=== PATIENT | male | born 1965 | race Caucasian/White ===

== ENCOUNTER 2021-11-26 13:20 | Outpatient (REF) | payer MEDICAID, SELFPAY ==
[2021-11-26 22:21] LABS: HCT 40.6 % (40.0-50.0); HGB 13.6 g/dL (13.5-17.5); MCH 29.4 pg (27.0-33.0); MCHC 33.5 % (32.0-36.0); MCV 88 fL (80-95); MPV 12.4 fL (8.0-11.0); Platelet Count 205 10^3/uL (130-400); RBC 4.63 10^6/uL (4.36-5.78); RDW 11.9 % (11.8-14.1); RDW-SD 38.3 fL; WBC 6.51 10^3/uL (4.4-10.8)
[2021-11-26 22:36] LABS: Hemoglobin A1C 5.4 % (<5.7)
[2021-11-26 22:43] LABS: ALT 26 U/L (16-63); AST 21 U/L (15-37); Albumin 4.3 g/dL (3.4-5.0); Alkaline Phosphatase 63 U/L (46-116); Anion Gap 10.6 mmol/L (3-11); BUN 17 mg/dL (7-18); Bilirubin, Total 1.3 mg/dL (0.2-1.0); CO2 25.4 mmol/L (21.0-32.0); CREATININE 1.1 mg/dL (0.70-1.30); Calculated LDL 130 mg/dL (<100); Chloride 104 mmol/L (98-107); Cholesterol 239 mg/dL (<200); Glucose 95 mg/dL (74-106); HDL Cholesterol 66 mg/dL (40-60); Potassium 4.3 mmol/L (3.5-5.1); Sodium 140 mmol/L (136-145); Total Protein 7.5 g/dL (6.4-8.2); Triglyceride 216 mg/dL (<150)
[2021-11-28 11:02] LABS: HIV-1/2 Ag & Ab Screen Negative (Negative)
[2021-11-28 11:13] LABS: Hepatitis C Ab w Rflx HCV PCR Negative (Negative)
== END 2021-11-26 13:21 | disposition home or self-care (01) ==
LOC: NCHCN 13:20
PROVIDERS: PCP Internal Medicine; Visit Provider Family Medicine
DX: Z11.4 Encounter for screening for human immunodeficiency virus [HIV] (principal); Z13.1 Encounter for screening for diabetes mellitus; F10.99 Alcohol use, unspecified with unspecified alcohol-induced disorder; R03.0 Elevated blood-pressure reading, without diagnosis of hypertension; Z11.59 Encounter for screening for other viral diseases; Z13.220 Encounter for screening for lipoid disorders
CPT/HCPCS: 80053; 80061; 85027; 86803; 87389; 83036

== ENCOUNTER 2022-12-08 15:18 | Outpatient (REF) | payer MEDICAID, SELFPAY ==
[2022-12-08 16:20] LABS: Bilirubin, Direct 0.2 mg/dL (0.0-0.2); Bilirubin, Total 1.2 mg/dL (0.2-1.0); CREATININE 1.1 mg/dL (0.70-1.30); Estimated GFR 79.28 (mL/min/1.73m2); Uric Acid 7.5 mg/dL (3.5-7.2)
== END 2022-12-08 15:19 | disposition home or self-care (01) ==
LOC: NCHCN 15:18
PROVIDERS: PCP Family Medicine; Visit Provider Family Medicine
DX: I10 Essential (primary) hypertension (principal); M10.9 Gout, unspecified; E80.6 Other disorders of bilirubin metabolism
CPT/HCPCS: 82247; 82248; 82565; 84550

== ENCOUNTER 2024-07-11 13:33 | Emergency (ER) | payer MEDICAID, SELFPAY ==
[2024-07-11] VITALS (17 sets, daily range): BP systolic 137–224; BP diastolic 86–127; PULSE 51–84; RESP 12–18; TEMP 36.3; O2SAT 97–100
--- NOTE | 2024-07-11 13:45 | RT.EKG_ITS ---
APPROVED REPORT Exam: Resting ECG Reason for Exam: dizziness Patient Location: E HR:59 bpm ECG Measurements Heart Rate 59 AXIS OH 172 P 53 QRSd 100 QRS -26 QT 421 T 17 QTc 418 Conclusion Sinus bradycardia...rate< 60
--- NOTE | 2024-07-11 14:00 | DI.CT_ITS ---
Exam(s) CT ABDOMEN PELVIS W EXAM: CT ABDOMEN PELVIS W CLINICAL HISTORY: llq pain. TECHNIQUE: Imaging Protocol: Axial computed tomography images with coronal and sagittal reformatted images were created and reviewed CONTRAST MATERIAL: Intravenous: Omnipaque-350 75cc Oral: None COMPARISON: No exams were available for comparison FINDINGS: VISUALIZED LUNG BASES: No nodules nor pleural effusions evident. ABDOMEN: There is no ascites. LIVER: There are no focal hepatic lesions evident. No dilated intrahepatic ducts. GALLBLADDER/BILIARY: No obvious gallbladder pathology. CBD is not dilated. PANCREAS: No evidence of pancreatic mass nor dilatation of the pancreatic duct. SPLEEN: Spleen is not enlarged. No obvious intrasplenic lesions. Splenic and portal veins are paten t. ADRENALS: There are no significant adrenal masses. KIDNEYS:There is a benign cyst in the superior pole of the left kidney which measures 3.1 x 2.6 x 2. 0 cm. Does not require further imaging workup. No other cysts nor solid lesions in either kidney. No calculi. No hydronephrosis. No significant focal findings in the moderately distended urinary bl adder.. ABDOMINAL AORTA: Abdominal aorta is not enlarged. LYMPH NODES:There is no retroperitoneal nor paraaortic adenopathy. ABDOMINAL WALL: No evidence of significant anterior abdominal wall nor inguinal hernia. GI: There is no evidence of bowel obstruction, free air, nor abscess. PELVIS: GI: No evidence of appendicitis.There is no significant sigmoid diverticular disease. LYMPH NODES: There is no intrapelvic nor inguinal adenopathy. REPRODUCTIVE: Prostate size upper normal. Seminal vesicles unremarkable. URINARY BLADDER: No calculi nor obvious masses evident OSSEOUS: No fractures and no significant osseous lesions. IMPRESSION: 1. There is a 3.1 x 2.6 x 2.0 cm benign cyst in the superior pole the left kidney. This does not req uire further imaging workup. No other significant focal renal findings and no hydronephrosis nor hyd roureter nor radiopaque calculi in the mildly distended urinary bladder. 2. No evidence of significant sigmoid diverticular disease in this patient apparently has left lower quadrant pain. The right-sided appendix appears unremarkable. 3. No evidence of bowel obstruction, free air, nor abscess. Report called by myself to ER physician 07/11/2024 at 3 p.m. RADIATION DOSE DELIVERED: 348.29mGy.cm Total DLP DATA REPOSITORY: All CT scans at this facility are submitted to the National Radiology Data Registry (NRDR) Dose Index Registry (DIR) with the [employer] (ACR). RADIATION OPTIMIZATION: All CT scans at this facility use at least one of these dose optimization te chniques: automated exposure control; mA and/or kV adjustment per patient size (includes targeted exa ms where dose is matched to clinical indication); or iterative reconstruction.
--- NOTE | 2024-07-11 14:08 | W.ED.GENAD ---
Discharge Plan Disposition Patient Disposition: Home Condition: Stable Discharge Details Chief Complaint: Dizzy/Sync Clinical Impression: Abdominal pain, acute, left lower quadrant, Bright red blood per rectum Primary Care Provider: Paras Espino ED Provider: Marco Edmond Home Meds and New Rx's Prescriptions: No Action acetaminophen [Tylenol] 325 MG tablet 2 tab PO PRN PRN clindamycin HCl 300 MG capsule 300 mg PO TID Qty: 30 0RF Discharge Instructions Additional Instructions: Your blood work and CAT scan did not show any concerning findings at this time Follow-up with your primary care provider and discuss being referred for a colonoscopy If you feel more ill, have severe worsening pain or new symptoms such as severe chest pain or difficulty breathing return to the emergency department for reevaluation HPI General Mode of arrival: ambulatory. Date/Time Provider Initiated Documentation: 07/11/24 13:34. Limitations to Documentation: no limitations. Information obtained by: patient. History of Present Illness 58 year old M presents to the emergency department with the chief complaint of left lower abdominal pain, described as moderate, Quality is described as sharp, and is localized to the abdomen. Patient reports no radiation. Patient started experiencing this day(s) (1) and it has been constant. No relieving factors improve symptom(s), No exacerbating factors reported . Patient notes other (bright red blood per rectum); denies fever/chills, nausea/vomiting and shortness of breath. Patient did receive the following treatments prior to arrival, none Related Data Home Medications ?Medication ?Instructions ?Recorded ?Confirmed acetaminophen 325 mg tablet 2 tab PO PRN PRN 05/10/16 05/29/16 (Tylenol) clindamycin HCl 300 mg capsule 300 mg PO TID #30 caps 05/29/16 Previous Rx's ?Medication ?Instructions ?Recorded clindamycin HCl 300 mg capsule 300 mg PO TID #30 caps 05/29/16 Allergies Allergy/AdvReac Type Severity Reaction Status Date / Time meperidine HCl (From Demerol) AdvReac Unverified 05/29/16 15:59 General Stated Complaint: Dizzy/Sync SOTERO: 3 Review of Systems All systems reviewed & are unremarkable except as noted in HPI and below Constitutional Constitutional: Denies chills, Denies fever(s) and Denies weakness Cardiovascular Cardiovascular: Denies chest pain and Denies dyspnea Respiratory Respiratory: Denies cough and Denies dyspnea Gastrointestinal Gastrointestinal: Reports abdominal pain, Reports hematochezia and Denies vomiting Genitourinary Genitourinary: Denies dysuria Neurologic Neurologic: Denies weakness Exam Const General: no acute distress Orientation: alert [facility] Head: normal to inspection Ears: external ears normal General nose exam: external nose normal Mouth: moist mucous membranes Eyes General: appearance normal, both eyes and all related structures Neck Neck: normal visual inspection Resp Effort & Inspection: normal respiratory effort and able to speak in complete sentences Cardio Rate: regular rate GI Palpation: soft, not firm, no guarding and tender Rectal Exam: visual inspection normal and No hemorrhoids Skin General skin exam: no rashes or lesions noted Neuro General: patient alert and patient oriented x3 Extrem General: normal to inspection Psych Mental Status: mental status grossly normal Course Vital Signs Vital signs: Vital Signs Temperature 36.3 C L 07/11/24 13:41 Pulse 67 07/11/24 13:41 Respiratory Rate 18 07/11/24 13:41 Blood Pressure 187/102 H 07/11/24 13:41 Pulse Oximetry 99 07/11/24 13:41 Temperature 36.3 C L 07/11/24 13:41 Temperature Source Tympanic 07/11/24 13:41 Pulse 67 07/11/24 13:41 Respiratory Rate 18 07/11/24 13:41 Blood Pressure 187/102 H 07/11/24 13:41 Blood Pressure Position Sitting 07/11/24 13:41 Pulse Oximetry 99 07/11/24 13:41 Oxygen Delivery Method Room Air 07/11/24 13:41 Oxygen Flow Rate 0 07/11/24 13:41 Pain Level 0 07/11/24 13:41 Medical Decision Making 58-year-old male who denies any significant past medical history though he has been dealing with intermittent bright red blood in stools for over a year now comes in with continued intermittent bright red blood per stool and a day left lower quadrant pain. No fevers or chills, no chest pain difficulty breathing. No vomiting. He is well-appearing on exam and has a soft nondistended abdomen with tenderness in the left lower quadrant without guarding. He has no bleeding on rectal exam nor any signs of recent bleeding and no external hemorrhoids. Given the left lower quadrant tenderness we will proceed with a CBC CMP and also CT abdomen pelvis to evaluate for diverticulitis. Labs and imaging show no significant emergent findings. Patient is stable sitting on the edge of the bed in no distress and currently asymptomatic. Given reassuring workup feel he is stable for discharge, he says he has follow-up with his PCP tomorrow and will likely have referral given for colonoscopy. He is stable for discharge and return precautions given Differential Diagnosis Differential Diagnosis: Diverticulitis, internal hemorrhoids Imaging Data Radiologic Study: Attestation: I personally reviewed and interpreted this imaging study as follows: Imaging: CT Scan Radiologist's impression: sinus badycardia rate of 59 no stemi Lab Data Lab results reviewed: Yes I reviewed the patient's lab results. Quality:SDOH Health Related Social Needs: No Data to Display PFSH All Active Problems (Updated 07/11/24 @ 15:16 by Marco Edmond MD) Bright red blood per rectum (Acute) Abdominal pain, acute, left lower quadrant (Acute) Social History Smoking/Tobacco Use Status: Never Smoking risk assessment performed?: Yes Drug use: Never Do you feel safe in your relationship?: Yes
[2024-07-11 14:13] LABS: BE (Venous) 2 mmol/L (-2-3); HCO3 (Venous) 28 mmol/L (23-28); O2 Sat (Venous) 61 %; TCO2 (Venous) 25 mmol/L (24-29); pCO2 (Venous) 49 mmHg (41-51); pH (Venous) 7.37 (7.31-7.41); pO2 (Venous) 31 mmHg
[2024-07-11 14:17] LABS: Abs Immature Grans 0.02 10^3/uL (0.0-0.06); Absolute Basophil Count 0.04 10^3/uL (0.0-0.2); Absolute Eosinophil Count 0.08 10^3/uL (0.0-0.7); Absolute Lymphocyte Count 1.19 10^3/uL (1.2-3.4); Absolute Monocyte Count 0.41 10^3/uL (0.1-0.8); Absolute Neutrophil Count 4.16 10^3/uL (1.2-6.7); Basophils % 0.7 %; Eosinophils % 1.4 %; HCT 39.9 % (40.0-50.0); HGB 13.9 g/dL (13.5-17.5); Immature Grans % 0.3 %; Lymphocytes % 20.2 %; MCHC 34.8 % (32.0-36.0); MCV 86 fL (80-95); MPV 11.2 fL (8.0-11.0); Monocytes % 6.9 %; Neutrophils % 70.5 %; Platelet Count 205 10^3/uL (130-400); RBC 4.63 10^6/uL (4.36-5.78); RDW 11.6 % (11.8-14.1); RDW-SD 36.2 fL
[2024-07-11 14:30] LABS: ALT 30 U/L (16-63); AST 26 U/L (15-37); Albumin 4.3 g/dL (3.4-5.0); Alkaline Phosphatase 64 U/L (46-116); BUN 13 mg/dL (7-18); Bilirubin, Direct 0.3 mg/dL (0.0-0.2); Bilirubin, Total 1.31 mg/dL (0.2-1.0); CREATININE 1.2 mg/dL (0.70-1.30); Calcium 9.2 mg/dL (8.5-10.1); Chloride 104 mmol/L (98-107); Estimated GFR 70.98 (mL/min/1.73m2); Glucose 104 mg/dL (74-106); Lipase 34 U/L (<78); Magnesium 2.1 mg/dL (1.8-2.4); Potassium 3.8 mmol/L (3.5-5.1); Sodium 143 mmol/L (136-145); Total Protein 7.7 g/dL (6.4-8.2)
[2024-07-11 14:34] LABS: Troponin I 6 ng/L (<or=76)
[2024-07-11 14:52] LABS: Bilirubin Negative (Negative); Blood Negative (Negative); Clarity Clear (Clear); Glucose Negative (Negative); Ketones Negative (Negative); Leukocyte Esterase Negative (Negative); Nitrite Negative (Negative); Urobilinogen 0.2 mg/dL (Up to 0.2); pH 6.5 (5-8)
--- OUTSIDE RECORDS SUMMARY | 2024-07-11 15:55 | XMS_ITS | Encounter Summary ---
Author Organization [facility] Address [address] [place] [address] Care Team Providers Care Ribbon Hand Name Role Phone Unknown, Provider Primary Care Provider Unava ilable Encounter Details Date Type Department Care Team (Late st Contact Info) Description 11/27/2021 Lab Requisition [facility] Pathology & Laboratory Medicine - [facility] [address], [place] [id number] Outr Resulting Lab, Provider Social History Tobacco Use Types Packs/Day Years Used Date Smoking Tobacco: Never Assessed Sex and Gender Information Value Date Recorded Sex Assigned at Not on file Legal Sex Male 16:47 EDT Gender Identity Not on file Sexual Orientation Not on file documented as of this encounter Plan of Treatment Not on file documented as of this encounter Procedures Procedure Name Priority Date/Time Associated Diagnosis Comments HEPATITIS C AB W REFLEX TO HCV RNA BY PCR Routine 11/26/2021 12:30 EDT documented in this encounter Results * HEPATITIS C AB W REFLEX TO HCV RNA BY PCR (11/26/2021 12:30 EDT) Hep C Antibody Negative Negative 11/28/2021 11:09 EDT [facility] Blood VENOUS BLOOD / Unknown 11/26/2021 12:30 EDT 11/27/2021 17:06 EDT us Provider Outr Resulting Lab CHEMISTRY & BLOOD GA S ORDERABLES Final Result [facility] [address] [place] [address] documented in this encounter Visit Diagnoses Not on filedocumented in this encounter Care Teams Ribbon Hand Relationship Specialty Start Date End Date Unknown, Provider, PCP - General 05/24/15 documented as of this encounter
--- OUTSIDE RECORDS SUMMARY | 2024-07-11 15:55 | XMS_ITS | Clinical Summary ---
Author Organization [facility] Address [address] [place] [address] Care Team Providers Care Delta System Freight Car Cleaner Name Role Phone Unknown, Provider Primary Care Provider Unava ilable Social History Tobacco Use Types Packs/Day Years Used Date Smoking Tobacco: Never Assessed Sex and Gender Information Value Date Recorded Sex Assigned at Not on file Legal Sex Male 16:47 EDT Gender Identity Not on file Sexual Orientation Not on file Plan of Treatment Health Maintenance Due Date Last Done Comments Hepatitis B Vaccine (1 of 3 - 19+ 3-dose series) 08/02 COVID-19 Vaccine ( season) 2024 Hepatitis C Screen Completed 11/26/2021 Procedures Procedure Name Priority Date/Time Associated Diagnosis Comments HEPATITIS C AB W REFLEX TO HCV RNA BY PCR Routine 11/26/2021 12:30 EDT from Last 3 Months or Most Recently Relevant to Health Maintenance Results * HEPATITIS C AB W REFLEX TO HCV RNA BY PCR (11/26/2021 12:30 EDT) Hep C Antibody Negative Negative 11/28/2021 11:09 EDT [facility] Blood VENOUS BLOOD / Unknown 11/26/2021 12:30 EDT 11/27/2021 17:06 EDT us Provider Outr Resulting Lab CHEMISTRY & BLOOD GA S ORDERABLES Final Result [facility] [address] [place] [address] from Last 3 Months or Most Recently Relevant to Health Maintenance Care Teams [employer] Freight Car Cleaner Relationship Specialty Start Date End Date Unknown, Provider, PCP - General 05/24/15
--- OUTSIDE RECORDS SUMMARY | 2024-07-11 15:55 | XMS_ITS | Encounter Summary ---
Author Organization [facility] Address [address] [place] [address] Care Team Providers Care Training And Development Project Leader Name Role Phone Unknown, Provider Primary Care Provider Unava ilable Encounter Details Date Type Department Care Team (Late st Contact Info) Description 11/27/2021 Lab Requisition [facility] Pathology & Laboratory Medicine - [facility] [address], [place] [id number] Outr Resulting Lab, Provider Social History Tobacco [...] Procedure Name Priority Date/Time Associated Diagnosis Comments HIV 1/2 ANTIGEN AND ANTIBODY, 4TH GENERATION Routine 11/26/2021 12:30 EDT documented in this encounter Results * HIV 1/2 ANTIGEN AND ANTIBODY, 4TH GENERATION (11/26/2021 12:30 EDT) HIV 1 and 2 Antibody/p24 Antigen, 4th Generation Negative Negative 11/28/2021 10:57 EDT [facility] Comment:If acute HIV-1 infec tion is suspected in a high risk patient, submit plasma specimen for HIV-1 RNA quantitation test. Blood VENOUS BLOOD / Unknown 11/26/2021 12:30 EDT 11/27/2021 17:06 EDT Narrative [facility] - 11/28/2021 10:57 EDT Fourth Generation assay performed on the Siemens Centaur XPT. us Provider Outr Resulting Lab IMMUNOLOGY AND SEROL OGY ORDERABLES Final Result [facility] [address] [place] [id number] documented in this encounter Visit Diagnoses Not on filedocumented in this encounter Care Teams Training And Development Project Leader Relationship Specialty Start Date End Date Unknown, Provider, PCP - General 05/24/15 documented as of this encounter
--- OUTSIDE RECORDS SUMMARY | 2024-07-11 15:55 | XMS_ITS | Referral Summary ---
Author Organization [facility] Address [address] [place] [address] Care Team Providers Care Medical Researcher Name Role Phone Unknown, Provider Primary Care Provider Unava ilable Social History Tobacco Use Types Packs/Day Years Used Date Smoking Tobacco: Never Assessed Sex and Gender Information Value Date Recorded Sex Assigned at Not on file Legal Sex Male 16:47 EDT Gender Identity Not on file Sexual Orientation Not on file Plan of Treatment Not on file Procedures Procedure Name Priority Date/Time Associated Diagnosis Comments HEPATITIS C AB W REFLEX TO HCV RNA BY PCR Routine 11/26/2021 12:30 EDT from Last 3 Months or Most Recently Relevant to Health Maintenance Results * HEPATITIS C AB W REFLEX TO HCV RNA BY PCR (11/26/2021 12:30 EDT) Hep C Antibody Negative Negative 11/28/2021 11:09 EDT [facility] Blood VENOUS BLOOD / Unknown 11/26/2021 12:30 EDT 11/27/2021 17:06 EDT us Provider Outr Resulting Lab CHEMISTRY & BLOOD GA S ORDERABLES Final Result [facility] [address] [place] [address] from Last 3 Months or Most Recently Relevant to Health Maintenance Care Teams Medical Researcher Relationship Specialty Start Date End Date Unknown, Provider, PCP - General 05/24/15
--- OUTSIDE RECORDS SUMMARY | 2024-07-11 15:55 | XMS_ITS | Encounter Summary ---
Author Organization [facility] Address [address] [place] [address] Care Team Providers Care Career Professional Name Role Phone Unavailable Primary Care Provider Unavailabl e Encounter Details Date Type Department Care Team (Latest Contact Info) Description 05/23/2015 15:30 EDT - 05/23/2015 23:59 EDT Hospital Encounter [address] [address] Unknown, Provider, MD Discharge Disposition: Home or Self Care Social History Tobacco Use Types Packs/Day Years Used Date Smoking Tobacco: Never Assessed Sex and Gender Information Value Date Recorded Sex Assigned at Not on file Legal Sex Male 16:47 EDT Gender Identity Not on file Sexual Orientation Not on file documented as of this encounter Discharge Disposition Disposition Code Departure Means Destination Home or Self Retirement documented in this encounter Plan of Treatment Not on file documented as of this encounter Visit Diagnoses Not on filedocumented in this encounter
--- OUTSIDE RECORDS SUMMARY | 2024-07-11 15:55 | XMS_ITS | Encounter Summary ---
Author Organization [facility] Address [address] [place] [address] Care Team Providers Care Street Light Servicer Helper Name Role Phone Unknown, Provider Primary Care Provider Unava ilable Encounter Details Date Type Department Care Team (Late st Contact Info) Description 05/23/2015 Results Only [facility] [phone] Anderson Magallanes MD [address] [facility] [address] [place] [address] Social History Tobacco Use Types Packs/Day Years [...] Procedure Name Priority Date/Time Associated Diagnosis Comments SURGICAL PATHOLOGY Routine 05/23/2015 17 :29 EDT documented in this encounter Results * SURGICAL PATHOLOGY (05/23/2015 17:29 EDT) Pathology Report: SURGICAL PATHOLOGY REPORT Reports generated via electronic interface contain original data; however they are lacking the format of the original report. Caution should be taken when reading/interpreting unformatted reports. Name: ? DIMITRIOS MARQUES ? Accession #: ? [id number] ? : ? 1965 (Age: 49) ??M ? Collect Date: ? 05/23/2015 ? Location: ? [facility] ? Receive Date: ? 05/24/2015 ? Provider: DANITZA MAGALLANES MD Copy to: ? Final Pathologic Diagnosis: A. SMALL BOWEL, SECOND PORTION OF DUODENUM, BIOPSY: - ??Duodenal mucosa with intraepithelial lymphocytosis and mild villous blunting. See comment. B. STOMACH, ANTRUM AND BODY, BIOPSY: - ??Oxyntic and transitional mucosa with mild inactive chronic gastritis. - ??No evidence of Helicobacter pylori by immunostaining. C. GASTROESOPHAGEAL JUNCTION, BIOPSY: - ??Cardia-oxyntic mucosa with pancreatic acinar metaplasia; negative for intestinal metaplasia or dysplasia. - ??Squamous mucosa with no significant abnormality. D. COLON, ASCENDING BIOPSY: - ??Colonic mucosa with no significant abnormality. E. COLON, DESCENDING, BIOPSY: - ??Colonic mucosa with mild melanosis coli, otherwise unremarkable. F. COLON, SIGMOID, BIOPSY: - ??Colonic mucosa with mild melanosis coli, otherwise unremarkable. G. RECTUM, BIOPSY: - ??Colorectal mucosa with hyperplastic change, otherwise unremarkable. Comment: Part A: There is expansion of lamina propria in conjunction with intraepithelial lymphocytosis, clinical correlation is recommended to exclude a possibility of Gluten sensitive enteropathy. Medication/ drug effect can present with similar findings. H. pylori (Rabbit Monoclonal (SP48), [place]) (B1): Negative NOTE: ??One or more of the reagents used in immunohistochemical testing in this case may not have been cleared or approved by the U.S. Food and Drug Administration (FDA). ??The FDA has determined that such clearance or approval is not necessary. ??These tests are used for clinical purposes. ??They should not be regarded as investigational or for research. ??These reagents' performance characteristics have been determined by [facility]. ??The positive and negative controls worked appropriately. This laboratory is certified under the Clinical Laboratory Improvement Amendments of 1988 (CLIA-88) as qualified to perform high complexity clinical laboratory testing. ?? Document reviewed and electronically signed by: LOGAN CARLSON MD Report ??Date: 05/29/2015 13:39 By the signature above, the attending physician certifies that he/she has personally conducted a gross and/or microscopic examination of the described specimens and rendered or confirmed the above diagnosis. Specimen(s) Received: A. ??2nd portion duodenum B. ??Antrum and body C. ??EGJ D. ??Ascending colon bx E. ??Descending colon bx F. ??Sigmoid bx G. ??Rectal bxs Clinical History: R/O IBD (microscopic colitis); clinical diagnosis code: K92.1, K21.9 Gross Description: A. ?Received in formalin labelled with proper patient identification (initials B, M) and 2nd portion duodenum are three pink-plummer tissues (0.3 x 0.1 x 0.1 cm, 0.3 x 0.2 x 0.1 cm, and 0.7 x 0.2 x 0.1 cm). Entirely submitted in A1. B. ?Received in formalin labelled with proper patient identification (initials B, M) and antrum and body are two pink-plummer tissues (0.1 x 0.1 x 0.1 cm and 0.6 x 0.2 x 0.1 cm). Entirely submitted in B1. C. ?Received in formalin labelled with proper patient identification (initials B, M) and EGJ is a single pink-plummer tissue fragment (0.4 x 0.3 x 0.2 cm). Submitted intact in C1. D. ?Received in formalin labelled with proper patient identification (initials B, M) and ascending colon bx is a single pink-plummer tissue fragment (0.2 x 0.2 x 0.1 cm). Submitted intact in D1. E. ?Received in formalin labelled with proper patient identification (initials B, M) and descending colon bx are three pink-plummer tissues (0.1 x 0.1 x 0.1 cm, 0.1 x 0.1 x 0.1 cm, and 0.4 x 0.2 x 0.2 cm). Entirely submitted in E1. F. ?Received in formalin labelled with proper patient identification (initials B, M) and sigmoid bx are three pink-plummer tissues (0.1 x 0.1 x 0.1 cm, 0.4 x 0.2 x 0.2 cm, and 0.7 x 0.3 x 0.2 cm). Entirely submitted in F1. G. ?Received in formalin labelled with proper patient identification (initials B, M) and rectal bx is a single pink-plmumer tissue fragment (0.4 x 0.2 x 0.2 cm). Submitted intact in G1. Dr. Junior 05/25/2015 6:41 AM End of Report [facility] 05/23/2015 17:2 9 EDT 05/24/2015 17:29 EDT us Anderson Magallanes MD PATHOLOGY ORDERABLES Final Resul t [facility] [address] [place] [address] documented in this encounter Visit Diagnoses Not on filedocumented in this encounter Care Teams Street Light Servicer Helper Relationship Specialty Start Date End Date Unknown, Provider, PCP - General 05/24/15 documented as of this encounter
== END 2024-07-11 16:10 | disposition home or self-care (01) ==
LOC: ER 15:52
PROVIDERS: Emergency Provider Emergency Medicine; PCP Family Medicine
DX: R10.32 Left lower quadrant pain (principal); K62.5 Hemorrhage of anus and rectum; R00.1 Bradycardia, unspecified; R42 Dizziness and giddiness
CPT/HCPCS: 36415; 80053; 82805; 83690; 86850; 86900; 86901; 93005; 99285; 74177; 81003; 82248; 83735; 84484; 85025; 93010; 99284

== ENCOUNTER 2024-07-12 18:39 | Outpatient (REF) | payer MEDICAID, SELFPAY ==
[2024-07-12 19:30] LABS: ESR < 1 mm/hr (0-20)
[2024-07-12 19:45] LABS: C-Reactive Protein < 0.50 mg/dL (<or=0.5)
[2024-07-18 15:07] LABS: HLA-B27 Result Negative
== END 2024-07-12 18:40 | disposition home or self-care (01) ==
LOC: NCHCN 18:39
PROVIDERS: PCP Family Medicine; Visit Provider Student in an Organized Health Care Education/Training Program
DX: R10.32 Left lower quadrant pain (principal); Z82.69 Family history of other diseases of the musculoskeletal system and connective tissue
CPT/HCPCS: 85652; 86812; 86140

== ENCOUNTER 2024-07-13 12:41 | Outpatient (REF) | payer MEDICAID, SELFPAY ==
[2024-07-18 14:43] LABS: Calprotectin <50.0 mcg/g
== END 2024-07-13 12:42 | disposition home or self-care (01) ==
LOC: NCHCN 12:41
PROVIDERS: PCP Family Medicine; Visit Provider Student in an Organized Health Care Education/Training Program
DX: K62.5 Hemorrhage of anus and rectum (principal)
CPT/HCPCS: 87328; 87493; 87505; 83630; 83993; 87177

== ENCOUNTER 2024-07-25 12:26 | Outpatient (REF) | payer MEDICAID, SELFPAY ==
[2024-07-27 14:34] LABS: Cryptosporidium, F Negative (Negative); Giardia Ag, F Negative (Negative)
== END 2024-07-25 12:27 | disposition home or self-care (01) ==
LOC: NCHCN 12:26
PROVIDERS: PCP Student in an Organized Health Care Education/Training Program; Visit Provider Student in an Organized Health Care Education/Training Program
DX: K62.5 Hemorrhage of anus and rectum (principal)
CPT/HCPCS: 87328; 87329; 83630

== ENCOUNTER 2024-07-27 12:58 | Outpatient (REF) | payer MEDICAID, SELFPAY ==
[2024-07-27 16:03] LABS: C Diff PCR Negative (Negative)
[2024-07-28 11:56] LABS: Campylobacter PCR Negative (Negative); Salmonella PCR Negative (Negative); Shiga Toxin PCR Negative (Negative); Shigella/Enteroinvasive Ecoli Negative (Negative)
== END 2024-07-27 12:59 | disposition home or self-care (01) ==
LOC: NCHCN 12:58
PROVIDERS: PCP Student in an Organized Health Care Education/Training Program; Visit Provider Student in an Organized Health Care Education/Training Program
DX: K62.5 Hemorrhage of anus and rectum (principal)
CPT/HCPCS: 87493; 87505; 87177

== ENCOUNTER 2024-08-15 20:43 | Outpatient (REF) | payer MEDICAID, SELFPAY ==
[2024-08-15 22:11] LABS: Anion Gap 7.8 mmol/L (3-11); BUN 20 mg/dL (7-18); CO2 26.2 mmol/L (21.0-32.0); CREATININE 1.2 mg/dL (0.70-1.30); Calcium 9.6 mg/dL (8.5-10.1); Chloride 106 mmol/L (98-107); Estimated GFR 70.53 (mL/min/1.73m2); Glucose 102 mg/dL (74-106); Potassium 4.4 mmol/L (3.5-5.1); Sodium 140 mmol/L (136-145)
== END 2024-08-15 20:44 | disposition home or self-care (01) ==
LOC: NCHCN 20:43
PROVIDERS: PCP Student in an Organized Health Care Education/Training Program; Visit Provider Student in an Organized Health Care Education/Training Program
DX: I10 Essential (primary) hypertension (principal)
CPT/HCPCS: 80048

== ENCOUNTER 2025-04-18 06:46 | Day surgery (SDC) | payer MEDICAID, SELFPAY ==
[2025-04-18 07:14] VITALS: BP 129/93; PULSE 80; RESP 16; TEMP 36.5; O2SAT 99
[2025-04-18] MEDS: Lactated Ringers 1,000 ML 80 ML IV (07:24)
--- NOTE | 2025-04-18 07:44 | W.ANESPRE ---
General Info Date of Service Date Performed: 04/18/25 Height: 5 ft 11 in Weight: 73.4 kg Body Mass Index (BMI): 22.6 Surgical Procedure: Operation Date: 04/18/25 09:20 Proposed Procedure Side Surgeon josé luis Rueda MD Meds Allergies and Home Medications Allergies Allergy/AdvReac Type Severity Reaction Status Date / Time meperidine HCl (From Demerol) AdvReac Other (See Verified 04/18/25 07:12 Comment) Home Medication ?Medication ?Instructions ?Recorded lisinopril 10 mg tablet 10 mg PO DAILY 08/02/24 colchicine 0.6 mg tablet 0.6 mg PO PRN 08/03/24 indomethacin 50 mg capsule 50 mg PO PRN 08/03/24 bisacodyl 5 mg tablet,delayed 5 mg PO ONCE #4 tabs 04/05/25 release (Dulcolax (bisacodyl)) polyethylene glycol 3350 17 17 g PO ONCE #238 grams 04/05/25 gram/dose oral powder Current Visit Medications: Current Medications Generic Name Dose Route Start Last Admin Trade Name Raissa PRN Reason Stop Dose Admin Ringer's Solution 1,000 mls @ 80 mls/hr 04/18/25 06:00 04/18/25 07:24 IV 04/18/25 23:59 80 mls/hr INFUSION MY Administration IV Miscellaneous Supplies 1 each 04/18/25 06:00 Iv Access IV 04/18/25 23:59 DIRECTED MY Sodium Chloride 0 ml 04/18/25 06:00 Normal Saline Flush 10 Ml Syr IV 04/18/25 23:59 PRN PRN Sodium Chloride 0 ml 04/18/25 06:00 Normal Saline 10 Ml Vial IJ 04/18/25 23:59 DIRECTED PRN Sterile Water 0 ml 04/18/25 06:00 Water,Injection,Sterile 10 Ml Vial IJ 04/18/25 23:59 DIRECTED PRN PFSH Active Problems Active Problems: Problem Status Onset Code GERD without esophagitis Acute K21.9 Hemorrhoids Acute K64.9 Essential hypertension Acute I10 Medical History Medical History Family history of ankylosing spondylitis father Snoring Low back pain Alcohol abuse Gout Surgical History Surgical History Hx of left knee surgery patellar ligament repair skin graft Tobacco Smoking/Tobacco Use Status: Never Alcohol Alcohol Intake: current Alcohol intake frequency: 3 or more drinks per day Alcohol type: beer Substance Use Substance use: Occasionally Substance use type: marijuana Vital Signs and Lab Results Vital Signs Most Recent Vital Signs in EMR: Most Recent Vital Signs Temp Pulse Resp BP Pulse Ox 36.5 C 80 16 129/93 H 99 04/18/25 07:14 04/18/25 07:14 04/18/25 07:14 04/18/25 07:14 04/18/25 07:14 Imaging and Studies Imaging and Studies Study information below may be from another EMR and interpreted by another provider. Please see original notes in EMR for more complete details. EKG Summary: EKG PATIENT NAME: Basilio Marques UNIT #: [id number] ORDERING PROVIDER: Marco Edmond M.D. PRIMARY CARE PROVIDER: TOÑA TORRES MD DATE/TIME OF SERVICE: 07/11/24 1347 : 1965 PERFORMING LOCATION: ER APPROVED REPORT Exam: Resting ECG Reason for Exam: dizziness Patient Location: E HR:59 bpm ECG Measurements Heart Rate 59 AXIS VT 172 P 53 QRSd 100 QRS -26 QT 421 T17 QTc 418 Conclusion Sinus bradycardia...rate< 60 Anesthesia Assessment and Plan Anesthesia History Personal History: PONV Family History: No Family History of Anesthesia Complications Exercise Tolerance Exercise Tolerance: Metabolic Equivalents>4 Pertinent Negatives Pertinent Negatives: No Symptoms of GERD, No Major Cardiovascular Symptoms or Complaints, No Major Pulmonary Symptoms or Complaints and No History of CVA/TIA Cardiac & Pulmonary Exam Cardiac Exam: Normal S1/S2 Heart Sounds Pulmonary Exam: Clear Bilateral Breath Sounds Implantable Cardiac Device Does patient have a Pacemaker or an ICD?: No Airway Exam Known Difficult Airway: No Mallampati Class: 2 Mouth Opening: Normal (> 3cm) Thyromental Distance: Greater than 3 cm Neck Range of Motion: Full ROM Neck Circumference: Normal Teeth Condition: Normal Dentition ASA Classification ASA Score: ASA 2 Emergency Case?: No NPO Status NPO Status: NPO Clears >2 hours, Solids >8 hours Anesthesia Plan Resuscitation Status: Full Code Anesthesia Technique: General Anesthesia Airway Planned: Natural Airway Monitors Used: Standard Monitors Preoperative Comments:: 59-year-old male with a history of hypertension, GERD and hemorrhoids presents for screening colonoscopy preop. His last colonoscopy was in 2014 which was unremarkable
[2025-04-18 07:46] VITALS: BMI 22.6
[2025-04-18 08:40] VITALS: BP 92/68; PULSE 69; RESP 16; TEMP 36.4; O2SAT 96
--- NOTE | 2025-04-18 08:41 | W.COLOREPORT ---
Date of service: 04/18/25 Time of Service: 08:41 Colonoscopy Report Date of procedure: 04/18/25 Pre-op diagnosis general: Screening colonoscopy Post-op diagnosis procedure note: same Procedure: Colonoscopy Surgeon: Juli Rueda Anesthesia Type: General:No Airway Estimated blood loss (mL): 1 Pathology: none sent Complications: None Disposition: PACU Indications: Patient is a 59-year-old male who presents for a screening colonoscopy. He has no concerns with his bowel habits at this time and no family history of colon cancer. Prep: Miralax/Dulcolax Procedure Start Time: 08:15 Procedure End Time: 08:33 Retraction Time: 10 Findings: Normal screening colonoscopy. Evidence of internal hemorrhoids. Procedure Description: Informed consent was obtained. The patient was taken to the endoscopy suite and placed in the left lateral decubitus position. After adequate intravenous sedation, digital rectal exam was performed, which was normal. A colonoscope was inserted into the rectum and negotiated to the cecum. The ileocecal valve and appendiceal orifice were identified. The entire colonic mucosa was then carefully circumferentially inspected upon slow withdrawal of the scope. The cecum, ascending, transverse, and descending colon were all normal. Retroflexion in the rectum was showed evidence of internal hemorrhoids. The patient tolerated the procedure well with no complications. Postoperatively, the patient was transferred to the recovery room in stable condition. [place] Bowel Prep [place] Bowel Prep Right Colon: 3 Left Colon: 3 Transverse Colon: 3 Total Score: 9
--- NOTE | 2025-04-18 08:51 | W.ANESPOSTOP ---
Postoperative Evaluation Date, Time and Location Date Performed: 04/18/25 Time Performed: 08:51 Patient Location: Day Surgery Unit Vital Signs Most Recent Imported Vital Signs: Most Recent Vital Signs Temp Pulse Resp BP Pulse Ox 36.4 C L 69 16 92/68 L 96 04/18/25 08:40 04/18/25 08:40 04/18/25 08:40 04/18/25 08:40 04/18/25 08:40 Pain Score Most Recent Pain Score: Most Recent Pain Score Pain Level 0 04/18/25 07:14 Assessment Mental Status: Awake (Alert & Oriented to Patient Baseline) Airway and Respiratory Function: Patent airway with normal (patient baseline) respiratory exam Cardiovascular Function: Hemodynamically Stable Hydration Status: Adequately Hydrated Nausea & Vomiting: No Nausea or Vomiting Pain: Pt. Denies Any Pain Peripheral Nerve Block: Patient did not receive a nerve block
[2025-04-18 09:02] VITALS: BP 117/81; PULSE 56; RESP 16; TEMP 36.2; O2SAT 98
== END 2025-04-18 09:20 | disposition home or self-care (01) ==
PROVIDERS: PCP Student in an Organized Health Care Education/Training Program; Visit Provider Student in an Organized Health Care Education/Training Program
PROC: 0DJD8ZZ Inspection of Lower Intestinal Tract, Via Natural or Artificial Opening Endoscopic (ICD-10-PCS; CPT 45378; principal; 2025-04-18 09:15)
DX: Z12.11 Encounter for screening for malignant neoplasm of colon (principal); I10 Essential (primary) hypertension; K21.9 Gastro-esophageal reflux disease without esophagitis; K64.8 Other hemorrhoids
CPT/HCPCS: 45378; 00123; J1596; J2003; J2405; J2704